=== PATIENT | female | born 1995 | race African-American/Black ===

== ENCOUNTER 2020-09-22 13:14 | Emergency (ER) | payer OTHER ==
[2020-09-22 13:29] VITALS: BP 103/63; PULSE 77; TEMP 97.9; BMI 23.3
[2020-09-22] MEDS ORDERED: IBUPROFEN 600 MG TABLET (FP) PO ONE ×2 (15:09→15:10)
== END 2020-09-22 15:18 | disposition home or self-care (01) ==
LOC: JERFT 13:14
DX: M79.10 Myalgia, unspecified site (principal)
CPT/HCPCS: 99283-25